=== PATIENT | female | born 1950 | race Caucasian/White ===

== ENCOUNTER 2017-11-27 15:11 | Observation (INO) ==
--- NOTE | 2017-11-27 16:18 | Emergency Department Note ---
Disposition Clinical Impression: Neck swelling DVT (deep venous thrombosis) Qualifiers: DVT location: non-extremity vein Chronicity: acute Qualified Code(s): I82.90 - Acute embolism and thrombosis of unspecified vein Disposition: Admitted As Inpatient Condition: Good Referrals: Fidel Guillen MD [Primary Care Provider] - Forms: ED Satisfaction Letter, Work/School Release Time of Disposition: 20:30 General Adult HPI - General Chief complaint: ED General Medical Stated complaint: Right IJ clot Time Seen by Provider: 11/27/17 15:59 Nursing Notes Reviewed: Yes Vital Signs Reviewed: Yes - History of Present Illness HPI Narrative: 2 day history of right sided neck pain, fevers and chills. Pt has breast cancer and is on chemo currently. She had a port placed Today the swelling got worse. So they went to the cancer doctor today and the Pt was found to have a blood clot in her right IJ. She has been off of her plavix for 2 weeks because she had a port placed at that time. She resumed this yesterday. Pain Scale: 4 - Related Data Home Medications Medication Instructions Recorded Confirmed Clopidogrel [Plavix] 75 mg PO DAILY 10/30/17 11/19/17 Gabapentin [Neurontin] 300 mg PO BID 10/30/17 11/19/17 GlipiZIDE XL (24 HR) [Glucotrol XL] 10 mg PO BID 10/30/17 11/19/17 Levothyroxine [Synthroid] 100 mcg PO DAILY 10/30/17 11/19/17 Metformin HCl 1,000 mg PO BID 10/30/17 11/19/17 Venlafaxine XR (24 HR) [Effexor XR] 150 mg PO BID 10/30/17 11/19/17 Aspirin [Lo-Dose Aspirin EC] 81 mg PO DAILY 11/01/17 11/19/17 Lisinopril [Zestril] 10 mg PO DAILY 11/27/17 11/27/17 Previous Rx's Medication Instructions Recorded Dexamethasone [Decadron] 4 mg PO BID PRN #36 tab 11/09/17 Lidocaine/Prilocaine [Emla] 1 appl TP AD PRN #30 gm 11/09/17 Ondansetron [Zofran] 8 mg PO Q8HR PRN #60 tablet 11/09/17 Prochlorperazine Maleate 10 mg PO Q6HR #90 tablet 11/09/17 [Compazine] Loratadine [Allergy Relief] 10 mg PO AD PRN #10 tablet 11/14/17 Magic Mouthwash 5 ml PO Q4H PRN #240 ml 11/14/17 Amoxicillin/Clavulanate [Augmentin] 500 mg PO BIDWM #10 tablet 11/26/17 Docusate Sodium [Colace] 100 mg PO BID #60 capsule 11/26/17 Polyethylene Glycol 3350 [MiraLAX] 17 gm PO DAILY PRN #1 powd.pack 11/26/17 Allergies Allergy/AdvReac Type Severity Reaction Status Date / Time fosaprepitant Allergy Severe Difficulty Verified 11/26/17 09:03 [From Emend (fosaprepitant)] Breathing moxifloxacin [From Avelox] Allergy Swelling Verified 11/26/17 09:03 of Lip/Tongue/Throat All systems ED: reviewed and negative except as stated. Constitutional: Reports: fever, chills (Over 2 days) ENT ED: Denies: congestion Cardiovascular: Reports: chest pain (One episode last night for around 30 minutes. Describes it as a tight sensation.). Denies: palpitations, syncope Respiratory: Denies: cough, dyspnea Gastrointestinal: Denies: abdominal pain, nausea, vomiting, diarrhea Genitourinary: Reports: frequency (Increased). Denies: urgency, dysuria Musculoskeletal: Reports: neck pain (Right-sided neck pain. Also right-sided neck swelling.). Denies: back pain Past Medical History - Past Medical History Attestation: Yes The following information was validated with the patient. Source: patient Medical history: Reports: cancer Surgical history: Reports: sinus surgery Psychiatric history: Reports: no psych history - Social History Smoking Status: Current every day smoker Smokeless Tobacco Status: No Alcohol use: Reports: none Drug use: Reports: none Physical Exam - General Limitations: no limitations General appearance: alert, in no apparent distress - Head Head exam: atraumatic, normocephalic, normal inspection - Eye Eye exam: Present: normal appearance, PERRL, EOMI - ENT ENT exam: normal exam, normal oropharynx, mucous membranes moist - Neck Neck exam: Present: full ROM, trachea midline, other (Mild swelling to the right side of her neck.) - Chest Chest inspection: Present: normal inspection, symmetric chest wall rise - Respiratory Respiratory exam: Present: normal lung sounds bilaterally. Absent: respiratory distress, accessory muscle use - Cardiovascular Cardiovascular exam: Present: regular rate, normal rhythm, normal heart sounds - Abdominal Exam Abdominal exam: Present: soft, Non-Tender. Absent: tenderness, distention, guarding, rebound, rigidity, organomegaly - Extremities Exam Extremities exam: Present: normal inspection, full ROM, normal capillary refill. Absent: tenderness, pedal edema - Back Exam Back exam: Present: normal inspection, full ROM. Absent: tenderness - Neurological Exam Neurological exam: Present: alert, oriented X3 - Psychiatric Psychiatric exam: Present: normal affect, normal mood - Skin Skin exam: Present: warm, dry, intact, normal color Course Course Narrative: Female patient presents emergency department complaining of right sided neck swelling. She states is been going on for 2 days. Intermittent fevers and chills. States last night she thought she felt something burst in her neck. She states she had a funny taste in her mouth at that time. She did present her physician today who sent her for a ultrasound of her right neck. She was found to have a clot in her right IJ so she was brought to the emergency department. She is on Plavix chronically for a stroke that was several years ago. She stopped taking her Plavix 2 weeks ago to have a port placed. She did not restart this until yesterday. She is also complaining of one episode of chest pain that happened last night. Lasted for about 30 minutes. Did not have associated shortness of breath. No swelling to her extremities. Patient is well appearing. In no distress. Vitals are stable. We will get a CTA of patient's chest and head and neck. We will contact vascular. They are requesting Dr. hood as he is her breast cancer doctor and has had vascular surgery is with parts of her family. However this time Dr. Zavala is not division merchandise manager. We will contact the on-call vascular surgeon to discuss the case and admit patient to the hospital. - Reevaluation(s) Reevaluation #1: No signs of bleeding in patients head CT. There does have a redemonstration of the right IJ DVT. We have started the patient on heparin at this time. We will admit patient to the hospital. Time: 20:29 - Consultations Consultation #1: I spoke with Dr Blanco through his nurse who requested that we contact surgery. Time: 17:20 Consultation #2: I spoke with Dr Black who suggested that the Pt would need further imaging and likely anticoagulation. Also admitted to the hospital. As well as IR evaluation since they placed the port. Time: 17:30 Consultation #3: Dr Sandy accepted Pt in stable condition. Time: 21:02 Vital Signs Temperature 98.7 F 11/27/17 15:48 Pulse Rate 96 11/27/17 15:48 Respiratory Rate 18 11/27/17 15:48 Blood Pressure 109/65 11/27/17 15:48 O2 Sat by Pulse Oximetry 97 11/27/17 15:48 Temperature 98.7 F 11/27/17 17:53 Pulse Rate 96 11/27/17 17:53 Respiratory Rate 18 11/27/17 17:53 Blood Pressure 119/63 11/27/17 17:53 O2 Sat by Pulse Oximetry 96 11/27/17 18:05 Oxygen Delivery Oxygen Delivery Room Air Medical Decision Making - Medical Records Medical records reviewed: Yes I reviewed the patient's medical records. - Lab Data Lab results reviewed: Yes I reviewed the patient's lab results. Result diagrams: 11/27/17 16:28 11/27/17 16:28 Lab Results 11/27/17 11/27/17 11/27/17 Range/Units 16:28 16:28 16:28 WBC 2.9 L D (4.3-11.1) K/mcL RBC 3.91 (3.82-4.97) M/mcL Hgb 11.7 (11.5-15.4) g/dL Hct 35.3 (35.3-44.9) % MCV 90.3 (83.0-100.0) fL MCH 29.9 (28.0-33.3) pg MCHC 33.1 (31.6-35.5) g/dL RDW 13.0 (11.5-14.5) % Plt Count 103 L (140-400) K/mcL MPV 10.2 (9.4-12.4) fL Immature Gran % 4.9 H (0-4) % Seg Neutrophils % 34.0 % Lymphocytes % 43.9 % Monocytes % 13.3 % Eosinophils % 2.8 % Basophils % 1.1 % Neutrophils # 1.0 L (1.6-8.9) K/mcL Lymphocytes # 1.3 (0.6-4.6) K/mcL Monocytes # 0.4 (0.0-1.3) K/mcL Eosinophils # 0.1 (0.0-0.6) K/mcL Basophils # 0.0 (0.0-0.2) K/mcL Reactive Lymphocytes Present A (Not Present) Platelet Estimate Decreased L (Normal) PT 11.9 (9.4-12.1) Seconds INR 1.1 Sodium 137 (136-145) mEq/L Potassium 4.1 (3.5-5.1) mEq/L Chloride 105 (98-107) mEq/L Carbon Dioxide 29 (23-29) mEq/L BUN 16 (8-23) mg/dL Creatinine 0.65 (0.60-1.20) mg/dL Est GFR ( Amer) > 60 (> 60) Est GFR (Non-Af Amer) > 60 (> 60) BUN/Creatinine Ratio 25 (6-26) Glucose 118 H (70-105) mg/dL Calculated Osmolality 286 (280-300) Calcium 8.7 (8.6-10.3) mg/dL Troponin I < 0.03 (< 0.04) ng/mL - Radiology Data Radiology results reviewed: Yes I reviewed the patient's radiology results. Angiography CT 11/27/17 16:19 IMPRESSION: 1. Moderate stenosis proximal left common carotid artery. 2. Moderate stenosis proximal right vertebral artery. 3. Patent intracranial arteries. 4. 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 5. No acute intracranial abnormality. 6. Multiple chronic brain infarcts. D/ / 11/27/2017 20:21:45 Michael Burch MD / angelica Interpreting Provider: Michael Burch MD Chest CTA 11/27/17 16:19 IMPRESSION: No evidence of pulmonary embolism or aortic dissection. As indicated on the history, there is a filling defect within the downstream right internal jugular vein adjacent to the mika catheter, extending into the superior vena cava, compatible with thrombus. There is fat stranding seen within the lower neck along the downstream internal jugular vein, which may be postprocedural from placement of the mika catheter, or could be secondary to venous congestion from the thrombus. Likewise, there is fat stranding which is increased in the right axillary region, again which may be secondary to venous congestion. Right axillary lymphadenopathy appears basically unchanged when compared to the previous exam. Re- demonstration of atherosclerotic plaque at the origin of the left common carotid artery. After resolution of acute symptoms, consider further evaluation with CT angiography. D/ / Basilio Ann MD / Basilio Ann MD Interpreting Provider: Basilio Ann MD Neck CTA 11/27/17 16:19 IMPRESSION: 1. Moderate stenosis proximal left common carotid artery. 2. Moderate stenosis proximal right vertebral artery. 3. Patent intracranial arteries. 4. 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 5. No acute intracranial abnormality. 6. Multiple chronic brain infarcts. D/ / 11/27/2017 20:21:45 Michael Burch MD / angelica Interpreting Provider: Michael Burch MD - EKG Data EKG #1 EKG attestation: Yes I reviewed and interpreted this EKG. EKG results narrative: Normal sinus rhythm. 96. TX interval is 136. QRS duration is 85. QT is 329. QTC is 383. No old EKG to compare to. No signs of acute ischemia.
[2017-11-27] MEDS ORDERED: Isovue-370 500 ML INFUS..BTL IV ONE ×2 (16:19→19:59)
[2017-11-27] MEDS ORDERED: 0.9 % Sodium Chloride 500 ML IVC ONE (16:20)
[2017-11-27 16:51] LABS: Basophils % 1.1 %; Eosinophils # 0.1 K/mcL (0.0-0.6); Eosinophils % 2.8 %; Hematocrit 35.3 % (35.3-44.9); Hemoglobin 11.7 g/dL (11.5-15.4); Immature Granulocytes % 4.9 % (0-4); Lymphocytes # 1.3 K/mcL (0.6-4.6); Lymphocytes % 43.9 %; Mean Corpuscular HGB Conc 33.1 g/dL (31.6-35.5); Mean Corpuscular Hemoglobin 29.9 pg (28.0-33.3); Mean Corpuscular Volume 90.3 fL (83.0-100.0); Mean Platelet Volume 10.2 fL (9.4-12.4); Monocytes # 0.4 K/mcL (0.0-1.3); Monocytes % 13.3 %; Platelet Count 103 K/mcL (140-400); Red Blood Count 3.91 M/mcL (3.82-4.97)
[2017-11-27 17:08] LABS: INR 1.1; Prothrombin Time 11.9 Seconds (9.4-12.1)
[2017-11-27 17:12] LABS: BUN/Creatinine Ratio 25 (6-26); Blood Urea Nitrogen 16 mg/dL (8-23); Calcium 8.7 mg/dL (8.6-10.3); Carbon Dioxide 29 mEq/L (23-29); Chloride 105 mEq/L (98-107); Glucose 118 mg/dL (70-105); Osmolality,Calculated 286 (280-300); Potassium 4.1 mEq/L (3.5-5.1); Sodium 137 mEq/L (136-145); Troponin I < 0.03 ng/mL (< 0.04); eGFR For Non-African Americans > 60 (> 60)
[2017-11-27 17:20] LABS: Reactive Lymphocytes Present (Not Present)
[2017-11-27 17:21] LABS: Platelet Estimate Decreased (Normal)
--- NOTE | 2017-11-27 17:31 | Emergency Department Note ---
Disposition Clinical Impression: DVT (deep venous thrombosis) Qualifiers: DVT location: non-extremity vein Chronicity: acute Qualified Code(s): I82.90 - Acute embolism and thrombosis of unspecified vein Disposition: Admitted As Inpatient Forms: ED Satisfaction Letter, Work/School Release General Adult HPI - General Chief complaint: ED General Medical Stated complaint: Right IJ clot Time Seen by Provider: 11/27/17 15:59 Limitations: no limitations - History of Present Illness Pain Scale: 4 - Related Data Home Medications Medication Instructions Recorded Confirmed Clopidogrel [Plavix] 75 mg PO DAILY 10/30/17 11/19/17 Gabapentin [Neurontin] 300 mg PO BID 10/30/17 11/19/17 GlipiZIDE XL (24 HR) [Glucotrol XL] 10 mg PO BID 10/30/17 11/19/17 Levothyroxine [Synthroid] 100 mcg PO DAILY 10/30/17 11/19/17 Metformin HCl 1,000 mg PO BID 10/30/17 11/19/17 Venlafaxine XR (24 HR) [Effexor XR] 150 mg PO BID 10/30/17 11/19/17 HYDROcodone/Acet 5/325 mg [[place] 1 tab PO Q6H PRN 10/31/17 11/19/17 5-325 mg] Aspirin [Lo-Dose Aspirin EC] 81 mg PO DAILY 11/01/17 11/19/17 Docusate Sodium [Stool Softener] 100 mg PO DAILY 11/26/17 11/26/17 Polyethylene Glycol 3350 [MiraLAX] 17 gm PO DAILY 11/26/17 11/26/17 Previous Rx's Medication Instructions Recorded Dexamethasone [Decadron] 4 mg PO BID PRN #36 tab 11/09/17 Lidocaine/Prilocaine [Emla] 1 appl TP AD PRN #30 gm 11/09/17 Ondansetron [Zofran] 8 mg PO Q8HR PRN #60 tablet 11/09/17 Prochlorperazine Maleate 10 mg PO Q6HR #90 tablet 11/09/17 [Compazine] Loratadine [Allergy Relief] 10 mg PO AD PRN #10 tablet 11/14/17 Magic Mouthwash 5 ml PO Q4H PRN #240 ml 11/14/17 Amoxicillin/Clavulanate [Augmentin] 500 mg PO BIDWM #10 tablet 11/26/17 Docusate Sodium [Colace] 100 mg PO BID #60 capsule 11/26/17 Polyethylene Glycol 3350 [MiraLAX] 17 gm PO DAILY PRN #1 powd.pack 11/26/17 Allergies Allergy/AdvReac Type Severity Reaction Status Date / Time fosaprepitant Allergy Severe Difficulty Verified 11/26/17 09:03 [From Emend (fosaprepitant)] Breathing moxifloxacin [From Avelox] Allergy Swelling Verified 11/26/17 09:03 of Lip/Tongue/Throat Constitutional: Reports: fever, chills (Over 2 days) ENT ED: Denies: congestion Cardiovascular: Reports: chest pain (One episode last night for around 30 minutes. Describes it as a tight sensation.). Denies: palpitations, syncope Respiratory: Denies: cough, dyspnea Gastrointestinal: Denies: abdominal pain, nausea, vomiting, diarrhea Genitourinary: Reports: frequency (Increased). Denies: urgency, dysuria Musculoskeletal: Reports: neck pain (Right-sided neck pain. Also right-sided neck swelling.). Denies: back pain Past Medical History - Past Medical History Medical history: Reports: cancer Surgical history: Reports: sinus surgery Psychiatric history: Reports: no psych history - Social History Smoking Status: Current every day smoker Smokeless Tobacco Status: No Alcohol use: Reports: none Drug use: Reports: none Physical Exam - General Limitations: no limitations General appearance: alert, in no apparent distress Course Vital Signs Temperature 98.7 F 11/27/17 15:48 Pulse Rate 96 11/27/17 15:48 Respiratory Rate 18 11/27/17 15:48 Blood Pressure 109/65 11/27/17 15:48 O2 Sat by Pulse Oximetry 97 11/27/17 15:48 Temperature 98.7 F 11/27/17 15:48 Pulse Rate 96 11/27/17 15:48 Respiratory Rate 18 11/27/17 15:48 Blood Pressure 109/65 11/27/17 15:48 O2 Sat by Pulse Oximetry 97 11/27/17 15:48 Oxygen Delivery Oxygen Delivery Room Air Medical Decision Making - Lab Data Result diagrams: 11/27/17 16:28 11/27/17 16:28 Lab Results 11/27/17 11/27/17 11/27/17 Range/Units 16:28 16:28 16:28 WBC 2.9 L D (4.3-11.1) K/mcL RBC 3.91 (3.82-4.97) M/mcL Hgb 11.7 (11.5-15.4) g/dL Hct 35.3 (35.3-44.9) % MCV 90.3 (83.0-100.0) fL MCH 29.9 (28.0-33.3) pg MCHC 33.1 (31.6-35.5) g/dL RDW 13.0 (11.5-14.5) % Plt Count 103 L (140-400) K/mcL MPV 10.2 (9.4-12.4) fL Immature Gran % 4.9 H (0-4) % Seg Neutrophils % 34.0 % Lymphocytes % 43.9 % Monocytes % 13.3 % Eosinophils % 2.8 % Basophils % 1.1 % Neutrophils # 1.0 L (1.6-8.9) K/mcL Lymphocytes # 1.3 (0.6-4.6) K/mcL Monocytes # 0.4 (0.0-1.3) K/mcL Eosinophils # 0.1 (0.0-0.6) K/mcL Basophils # 0.0 (0.0-0.2) K/mcL Reactive Lymphocytes Present A (Not Present) Platelet Estimate Decreased L (Normal) PT 11.9 (9.4-12.1) Seconds INR 1.1 Sodium 137 (136-145) mEq/L Potassium 4.1 (3.5-5.1) mEq/L Chloride 105 (98-107) mEq/L Carbon Dioxide 29 (23-29) mEq/L BUN 16 (8-23) mg/dL Creatinine 0.65 (0.60-1.20) mg/dL Est GFR ( Amer) > 60 (> 60) Est GFR (Non-Af Amer) > 60 (> 60) BUN/Creatinine Ratio 25 (6-26) Glucose 118 H (70-105) mg/dL Calculated Osmolality 286 (280-300) Calcium 8.7 (8.6-10.3) mg/dL Troponin I < 0.03 (< 0.04) ng/mL Attestation Statement - Attestation Attestation: I examined this patient and my medical decision-making was reviewed with the Resident Physician. I agree with the documented findings, disposition and treatment plan as described except to the extent set forth below. 67 year old female presents to the ED with complaints of right IJ blood clot recently found on US. Ashutosh has been experincing increased neck pain and swelling. Ashutosh curently has active breast cancer and was on plavix but stopped for the port placement, and after the port placement only just started the plavix again last night. Ashutosh states that she follows with Dr. Zavala and the port was placed 2 weeks ago. We have spoke with Dr. Blanco who is vascualr surgeon and they do not think this is a vascular concern, and to obtain consult from surgery. WE will obtain CTA of the head, neck, and chest to rule out other blood clots
[2017-11-27] MEDS ORDERED: *HR* Heparin 5,000 UNIT/ML VIAL IVP PRN ×2 (20:22)
[2017-11-27] MEDS ORDERED: *HR* Heparin 5,000 UNIT/ML VIAL IVP ONE (20:22)
[2017-11-27 21:10] LABS: Heparin anti-factor XA UFH 0.02 IU/mL (0.30-0.70)
[2017-11-27 21:11] LABS: Prothrombin Time 11.5 Seconds (9.4-12.1)
[2017-11-27 21:33] LABS: Hematocrit 33.9 % (35.3-44.9); Hemoglobin 11.1 g/dL (11.5-15.4); Mean Corpuscular HGB Conc 32.7 g/dL (31.6-35.5); Mean Corpuscular Hemoglobin 29.5 pg (28.0-33.3); Mean Corpuscular Volume 90.2 fL (83.0-100.0); Mean Platelet Volume 10.4 fL (9.4-12.4); Platelet Count 100 K/mcL (140-400); Red Blood Count 3.76 M/mcL (3.82-4.97); Red Cell Distribution Width 13.1 % (11.5-14.5)
[2017-11-27] MEDS: Heparin 25,000 UNIT/500 ML D5W 25,000 UNIT/500 ML BAG IVC SCH (21:39)
[2017-11-27] MEDS ORDERED: *HR* Dextrose 50 % in Water (Syg) 50 ML SYRINGE IVP PRN (22:07)
[2017-11-27] MEDS ORDERED: Naloxone 0.4 MG/ML INJ IVP PRN (22:07)
[2017-11-27] MEDS ORDERED: D5% in Water 1,000 ML IVC PRN (22:07)
[2017-11-27] MEDS ORDERED: Dextrose Gel 15 GM/37.5 ML TUBE PO PRN ×2 (22:07)
[2017-11-27] MEDS ORDERED: traMADol 50 MG TABLET PO PRN (22:07)
[2017-11-27] MEDS ORDERED: Acetaminophen 325 MG TABLET PO PRN (22:07)
[2017-11-27] MEDS ORDERED: Magic Mouthwash 10 ML UD Cup PO PRN (22:16)
[2017-11-27] MEDS ORDERED: Ondansetron ODT 4 MG TAB.RAPDIS PO PRN (22:16)
--- NOTE | 2017-11-27 22:35 | Internal Med History&Physical ---
Date of Encounter: 11/27/17 Time of Encounter: 21:50 Internal Medicine - H&P: HPI Chief complaint: neck pain/swelling Admitted From: Emergency Dept Plans for Post Hospital Care: Home History of present illness: Ms. Kenny is a 67 year old female who presents with complaints of right-sided neck pain, swelling, and sore throat. Symptoms presented several days ago and she was placed on Augmentin by her PCP for presumptive pharyngitis. However, the pain, swelling, and then subsequent chest pain persisted and developed leading the patient to come to the ER today. Workup in the ER revealed patient to have a thrombus in her right IJ and right brachiocephalic vein concerning for possible development of SVC syndrome. She was subsequently admitted to the hospitalist service. I personally called and spoke with interventional radiology and there is no involvement of SVC at this time, but anticoagulation is warranted nonetheless. I saw and evaluated patient in the ER and spoke with patient and her daughter. They confirmed the above history. The swelling in her neck has improved over the last several hours since she has been lying flat. She also has had some chest tightness and chest pain earlier today but presently is chest pain-free. She denies any shortness of breath. She recently had a Medi-port placed about 10 days ago by interventional radiology. She subsequently started chemotherapy for a recent diagnosis of breast cancer. She remains on aspirin and Plavix for stroke prophylaxis as she has had multiple strokes in the past. Of note, patient has never had a DVT before and there is no family history of blood clots. Past Med Surg Social Fam HX - Past Medical History Attestation: Yes The following information was validated with the patient. Source: patient, old records reviewed, obtained from family Medical history: cancer (breast), diabetes, hypertension Psychiatric history: no psych history - Past Surgical History Surgical History: sinus surgery, other ( surgery) - Social History Smoking Status: Current every day smoker Smokeless Tobacco Status: No Alcohol use: none Drug use: none Current living situation: Home - Independent Activity Level: Independent ambulation Recent Out of Country Travel Within the Last 8 Weeks: No - Family History Mother Hx Family Cancer: No Father Hx Family Cancer: No - Additional Family History Additional family history: NO FH DVT/PE Internal Medicine - H&P: Meds Clopidogrel [Plavix] 75 mg PO DAILY 10/30/17 [History] Gabapentin [Neurontin] 300 mg PO BID 10/30/17 [History] GlipiZIDE XL (24 HR) [Glucotrol XL] 10 mg PO BID 10/30/17 [History] Levothyroxine [Synthroid] 100 mcg PO DAILY 10/30/17 [History] Metformin HCl 1,000 mg PO BID 10/30/17 [History] Venlafaxine XR (24 HR) [Effexor XR] 150 mg PO BID 10/30/17 [History] Aspirin [Lo-Dose Aspirin EC] 81 mg PO DAILY 11/01/17 [History] Dexamethasone [Decadron] 4 mg PO BID PRN #36 tab 11/09/17 [Rx] Lidocaine/Prilocaine [Emla] 1 appl TP AD PRN #30 gm 11/09/17 [Rx] Ondansetron [Zofran] 8 mg PO Q8HR PRN #60 tablet 11/09/17 [Rx] Prochlorperazine Maleate [Compazine] 10 mg PO Q6HR #90 tablet 11/09/17 [Rx] Loratadine [Allergy Relief] 10 mg PO AD PRN #10 tablet 11/14/17 [Rx] Magic Mouthwash 5 ml PO Q4H PRN #240 ml 11/14/17 [Rx] Amoxicillin/Clavulanate [Augmentin] 500 mg PO BIDWM #10 tablet 11/26/17 [Rx] Docusate Sodium [Colace] 100 mg PO BID #60 capsule 11/26/17 [Rx] Polyethylene Glycol 3350 [MiraLAX] 17 gm PO DAILY PRN #1 powd.pack 11/26/17 [Rx] Lisinopril [Zestril] 10 mg PO DAILY 11/27/17 [History] 3 Allergy/AdvReac Type Severity Reaction Status Date / Time fosaprepitant Allergy Severe Difficulty Verified 11/26/17 09:03 [From Emend (fosaprepitant)] Breathing moxifloxacin [From Avelox] Allergy Swelling Verified 11/26/17 09:03 of Lip/Tongue/Throat - Constitutional Constitutional: no chills, no fever(s), no night sweats - EENT Eyes: no blurry vision, no change in vision Ears: no ear pain, no tinnitus Nose, mouth and throat: neck pain, no nasal congestion, no sinus pressure, no sore throat, no throat swelling, no tongue swelling Additional comments: + right sided neck swelling - Cardiovascular Cardiovascular ROS IM: chest pain, no dyspnea, no dyspnea on exertion, no lightheadedness, no palpitations, no paroxysmal nocturnal dyspnea, no syncope - Respiratory Respiratory: no cough, no dyspnea, no hemoptysis, no wheezing, no chest congestion, no excessive phlegm production, no change in phlegm color - Gastrointestinal Gastrointestinal: no abdominal pain, no diarrhea, no hematemesis, no hematochezia, no melena, no nausea, no vomiting - Genitourinary Genitourinary: no dysuria, no flank pain, no hematuria - Musculoskeletal Musculoskeletal ROS IM: no arthralgias, no back pain - Integumentary Integumentary IM: no rash, no jaundice - Neurological Neurological ROS: no disequilibrium, no dizziness, no focal weakness, no frequent falls, no headache(s) - Psychiatric Psychiatric: no anxiety, no depression - Endocrine Endocrine IM: no polydipsia, no polyuria - Hematologic/Lymphatic Hematologic/Lymphatic: easy bruising, lymphadenopathy - Allergic/Immunologic Allergic/Immunologic: no wheezing, no GI upset with certain foods - Constitutional Vitals: Temp Pulse Resp BP Pulse Ox 98.7 F 96 18 119/63 96 11/27/17 17:53 11/27/17 17:53 11/27/17 17:53 11/27/17 17:53 11/27/17 18:05 General appearance: Present: cooperative, A&O X 3, pleasant, no acute distress, answers questions appropriately - Head Head exam: Present: atraumatic, normal inspection - Eye Eye exam: Present: EOMI, normal appearance, PERRL. Absent: scleral icterus Pupils: Present: normal accommodation - ENT ENT exam: Present: mucous membranes dry, normal oropharynx - Neck Neck exam general surgery: Present: full ROM, tenderness (right neck along IJ), supple, trachea midline. Absent: normal inspection (right sided neck swelling ( mild) compared to left neck), nuchal rigidity, thyromegaly - Respiratory Respiratory exam: Present: CTAB. Absent: chest wall tenderness, rales, respiratory distress, rhonchi, wheezes - Cardiovascular Cardiovascular exam: Present: RRR, +S1, +S2. Absent: diastolic murmur, systolic murmur - GI/Abdominal GI/Abdominal exam: Present: normal bowel sounds, soft. Absent: guarding, hepatomegaly, mass, rebound, splenomegaly, tenderness - Extremities Exam Extremities exam: Present: full ROM, normal capillary refill, warm, radial pulses palpable and symmetrical. Absent: calf tenderness, joint swelling, pedal edema, tenderness - Back Exam Back exam: Absent: CVA tenderness (L), CVA tenderness (R) - Neurological Exam Neurological exam: Present: alert, CN II-XII intact, oriented X3, no focal deficits, strengths equal and symetr throughout - Psychiatric Psychiatric exam: Present: normal affect, normal mood - Skin Skin exam: Present: dry, intact, warm. Absent: rash Internal Med - H&P Results - Labs CBC & Chem 7: 11/27/17 20:36 11/27/17 16:28 - EKG Data -: EKG Interpreted by Myself EKG shows normal: sinus rhythm - EKG Data Prior EKG available for review: no EKG comments: 11/27/17 22:42 NSR; no acute changes - Diagnostic Studies CT scan - chest Additional comments: Reviewed report and discussed results with IR (Dr. Granger) - VTE Reasons for not Prescribing Prophylaxis: Not indicated-Anticoagulated or INR therapeutic - Assessment and plan (1) Internal jugular (IJ) vein thromboembolism, acute Current Visit: Yes Status: Acute Assessment and plan: 1. Heparin drip initiated in ER. Will continue for now. 2. Discussed with IR -- Dr. Granger. 3. I called and discussed with oncology as well (Dr. Lilly) who recommends transitioning to Xarelto tomorrow and discharging home on Xarelto if she remains stable and then to follow up with Oncology soon after discharge. If unable to do so, he will see her in consult tomorrow after office hours. Qualifiers: Laterality: right Qualified Code(s): I82.C11 - Acute embolism and thrombosis of right internal jugular vein (2) Chest pain Current Visit: Yes Status: Acute Assessment and plan: 1. Will trend troponins and EKG's. 2. Will order ECHO. 3. Concern for possible PE given symptoms and findings of IJ thrombus. CTA negative for PE. Furthermore, anticoagulaiton is being initiated. Qualifiers: Chest pain type: precordial pain Qualified Code(s): R07.2 - Precordial pain (3) Breast cancer Current Visit: Yes Status: Chronic Assessment and plan: 1. Patient already established with Oncology. 2. Outpatient follow up unless she develops a need for inpatient co-management. Qualifiers: Breast location: central portion of breast Estrogen receptor status: unspecified Patient sex: female Laterality: right Qualified Code(s): C50.111 - Malignant neoplasm of central portion of right female breast (4) DVT prophylaxis Current Visit: Yes Status: Acute Assessment and plan: 1. Heparin drip started as noted above.
[2017-11-27 23:44] LABS: Estimated Average Glucose 166 mg/dl; Hemoglobin A1C 7.4 %
[2017-11-28] MEDS: 0.9 % Sodium Chloride 1,000 ML IVC SCH ×2 (01:33→12:38)
[2017-11-28 04:44] LABS: Eosinophils % 1.6 %; Hemoglobin 11.2 g/dL (11.5-15.4)
[2017-11-28 04:46] LABS: Basophils # 0.1 K/mcL (0.0-0.2); Basophils % 1.3 %; Eosinophils # 0.1 K/mcL (0.0-0.6); Hematocrit 33.3 % (35.3-44.9); Immature Granulocytes % 10.9 % (0-4); Immature Platelets 3.2 % (1.1-6.1); Lymphocytes # 1.5 K/mcL (0.6-4.6); Lymphocytes % 32.3 %; Mean Corpuscular HGB Conc 33.6 g/dL (31.6-35.5); Mean Corpuscular Hemoglobin 30.5 pg (28.0-33.3); Mean Corpuscular Volume 90.7 fL (83.0-100.0); Mean Platelet Volume 10.3 fL (9.4-12.4); Monocytes # 0.5 K/mcL (0.0-1.3); Monocytes % 11.6 %; Neutrophils # 1.9 K/mcL (1.6-8.9); Platelet Count 106 K/mcL (140-400); Red Blood Count 3.67 M/mcL (3.82-4.97); Segmented Neutrophils % 42.3 %
[2017-11-28 04:56] LABS: Alanine Aminotransferase 25 Units/L (7-52); Albumin 3.3 g/dL (3.5-5.7); Albumin/Globulin Ratio 1.4 (1.1-2.2); Alkaline Phosphatase 103 Units/L (34-104); Aspartate Amino Transferase 13 Units/L (13-39); BUN/Creatinine Ratio 21 (6-26); Bilirubin,Total 0.3 mg/dL (0.3-1.0); Blood Urea Nitrogen 14 mg/dL (8-23); Calcium 8.5 mg/dL (8.6-10.3); Carbon Dioxide 25 mEq/L (23-29); Chloride 109 mEq/L (98-107); Chol/HDL Ratio 3.9 (0-4.9); Cholesterol 122 mg/dL (< 200); Globulin 2.3 g/dL (2.4-3.5); Glucose 135 mg/dL (70-105); HDL Cholesterol 31 mg/dL (40-59); LDL Cholesterol,Calculated 62 mg/dL (0-99); Osmolality,Calculated 287 (280-300); Potassium 3.9 mEq/L (3.5-5.1); Sodium 137 mEq/L (136-145); Total Protein 5.6 g/dL (6.4-8.9); Triglycerides 146 mg/dL (< 150); eGFR For Non-African Americans > 60 (> 60)
[2017-11-28 05:21] LABS: Platelet Estimate Decreased (Normal); Reactive Lymphocytes Present (Not Present); Toxic Granulation Present (Not Present)
[2017-11-28] MEDS ORDERED: Amoxicillin/Clavulanate 500 MG TABLET PO SCH (08:00)
[2017-11-28] MEDS: Insulin LISPRO 300 UNITS/3 ML VIAL SQ SCH ×5 (09:10→21:24)
[2017-11-28] MEDS: Gabapentin 300 MG CAPSULE PO SCH ×2 (09:18→21:24)
[2017-11-28] MEDS: Venlafaxine XR (24 HR) 150 MG CAP.ER.24H PO SCH ×2 (09:18→21:24)
[2017-11-28] MEDS: Aspirin Enteric Coated 81 MG Tablet PO SCH (09:19)
--- NOTE | 2017-11-28 11:45 | Internal Med Progress Note ---
Date of Encounter: 11/28/17 Time of Encounter: 11:42 - Assessment and plan (1) Internal jugular (IJ) vein thromboembolism, acute Current Visit: Yes Status: Acute Assessment and plan: Patient recently had a port placed on the side for her recent diagnosis of breast cancer. Will continue heparin drip and check pricing for xarelto period. If several toes not improved would likely start low molecular weight heparin twice a day. Due to the interval increase in swelling since admission per the patient and family will likely observe the rest of the day and overnight. It is no concern for any airway compromise. Oncology consultation pending Qualifiers: Laterality: right Qualified Code(s): I82.C11 - Acute embolism and thrombosis of right internal jugular vein (2) Breast cancer Current Visit: Yes Status: Chronic Assessment and plan: 1. Patient already established with Oncology. 2. Outpatient follow up unless she develops a need for inpatient co-management. Qualifiers: Breast location: central portion of breast Estrogen receptor status: unspecified Patient sex: female Laterality: right Qualified Code(s): C50.111 - Malignant neoplasm of central portion of right female breast (3) Chest pain Current Visit: Yes Status: Acute Assessment and plan: Chest pain resolved. Serial troponins are negative. Echocardiogram ordered. Qualifiers: Chest pain type: precordial pain Qualified Code(s): R07.2 - Precordial pain (4) DVT prophylaxis Current Visit: Yes Status: Acute Assessment and plan: 1. Heparin drip started as noted above. - Time Spent With Patient Total time spent is greater than 50% in coordination of care (as documented) at patient's floor/unit and/or counseling patient: - Subjective Interval history: Patient seen and evaluated at bedside. Since admission the patient states that she has had some interval increase in swelling of her neck and face. This corroborated by the patient's daughter. The patient's currently lying flat in the bed and comfortable. The patient is not having any trouble swallowing or breathing. Patient denies any chest pain shortness of breath, nausea, vomiting , diarrhea, headache - Constitutional Vitals: Temp Pulse Resp BP Pulse Ox 98.2 F 87 15 124/71 96 11/28/17 10:57 11/28/17 10:57 11/28/17 10:57 11/28/17 10:57 11/28/17 10:57 General appearance: Present: cooperative, A&O X 3, pleasant, no acute distress, answers questions appropriately Exam: Constitutional: No acute distress, Alert Psych: AAO x 3 HEENT: NCAT, EOMI, airway is patent there is no pharyngeal swelling, there is absolutely no evidence of stridor Neck: There is notable fullness throughout the neck more so on the right side extending into the right jaw. This does not appear to be very severe but is quite a change from normal. The patient and daughter Cardio: regular rate and rhythm, +s1s2, no murmurs/rubs/ronchi, no lower extremity edema, no JVD Resp: clear to ascultation bilaterally, no wheezes/rales/ronchi Abd: soft, non tender/non distended, positive bowel sounds, no gaurding/reboud/ ridgitity Extremities: no clubbing/cyanosis/edema appreciated Neuro: no focal deficits appreciated Internal Medicine: Result - Labs CBC & Chem 7: 11/28/17 04:23 11/28/17 04:23 Labs: Short CBC 11/28/17 Range/Units 04:23 WBC 4.5 (4.3-11.1) K/mcL Hgb 11.2 L (11.5-15.4) g/dL Hct 33.3 L (35.3-44.9) % Plt Count 106 L (140-400) K/mcL Neutrophils # 1.9 (1.6-8.9) K/mcL BMP 11/28/17 04:23 Sodium 137 Potassium 3.9 Chloride 109 H Carbon Dioxide 25 BUN 14 Creatinine 0.66 Glucose 135 H Calcium 8.5 L Cardiac Enzymes 11/27/17 11/28/17 Range/Units 23:24 04:23 Troponin I < 0.03 < 0.03 (< 0.04) ng/mL Liver Function 11/28/17 Range/Units 04:23 Total Bilirubin 0.3 (0.3-1.0) mg/dL AST 13 (13-39) Units/L ALT 25 (7-52) Units/L Alkaline Phosphatase 103 (34-104) Units/L Albumin 3.3 L (3.5-5.7) g/dL - ABG Interpretation ABG results: PT/INR, D-dimer PT 11.5 Seconds (9.4-12.1) 11/27/17 20:36 - VTE Reasons for not Prescribing Prophylaxis: Not indicated-Anticoagulated or INR therapeutic Consult Discharge Plan - Plan Referrals: Fidel Guillen MD [Primary Care Provider] - 12/06/17 9:00 am
--- NOTE | 2017-11-28 14:07 | Oncology Inp Progress Note ---
Date of Encounter: 11/28/17 Time of Encounter: 12:00 (1) Internal jugular (IJ) vein thromboembolism, acute Current Visit: Yes Status: Acute Assessment and plan: Patient with a MediPort in the right chest, with right neck extensive thrombosis of the internal jugular vein to brachiocephalic vein surrounded by fat stranding congestion, status post chemotherapy with the first cycle of Adriamycin Cytoxan, about 2 weeks ago. She is being anticoagulated. CT chest angiogram is negative for pulmonary embolism. She is having a procedure with cardiology, EKG/echocardiogram. Continue IV heparin today plan possible DC home on oral anticoagulation with Xarelto 20 mg daily subsequently. Symptoms are continuing to resolve continue with the Mediport for now. Qualifiers: Laterality: right Qualified Code(s): I82.C11 - Acute embolism and thrombosis of right internal jugular vein Oncology: Subj Interval history: Patient was sent to ER for evaluation and hospitalization after Doppler of the right neck showed acute DVT. Patient is feeling well. She denies any pain. She reports that the swelling is improving. - Constitutional Vitals: Vital Signs Temp Pulse Resp BP Pulse Ox 11/28/17 10:57 98.2 F 87 15 124/71 96 11/28/17 06:47 98.4 F 86 14 124/70 96 11/28/17 04:05 98.5 F 85 14 121/71 97 11/28/17 00:20 99.3 F 11/27/17 23:41 99.0 F 91 14 126/64 96 11/27/17 22:35 20 117/62 Intake and Output 11/27/17 11/28/17 11/28/17 23:59 07:59 15:59 Intake Total 0 / 1000 156 / 156 1783 / 1783 Output Total 0 / 0 900 / 900 Balance 0 / 1000 156 / 156 883 / 883 Intake: IV Fluids 156 / 156 1243 / 1243 0.9 % Sodium Chloride 1,000 ML 950 / 950 @ 100 mls/hr IVC .Q10H [facility] Rx#: [id number] Heparin 25,000 UNIT/500 ML D5W 156 / 156 293 / 293 25,000 unit In 500 ml @ 14 UNIT /KG/HR 20.321 mls/hr IVC .Q24H [facility] Rx#:[id number] Oral 0 / 0 0 / 0 540 / 540 Output: Urine 0 / 0 900 / 900 Other: Meal Breakfast Percent of Meal Consumed 75% Weight 73.1 kg 73.1 kg Blood Glucose* 130 Patient Weight 11/28/17 23:59 Weight 73.1 kg General appearance: no acute distress - Head Head exam: Present: atraumatic, normal inspection - Eye Eye exam: Present: sclera anicteric - ENT ENT exam: Present: mucous membranes moist - Neck Additional comments: Filomena nk fullness - Respiratory Respiratory exam: Present: CTAB - Cardiovascular Cardiovascular exam: Present: +S1, +S2 - Extremities Exam Extremities exam: Present: normal inspection - Neurological Exam Neurological exam: Present: alert, CN II-XII intact, oriented X3, no focal deficits Oncology: Obj Data - Labs CBC & Chem 7: 11/28/17 04:23 11/28/17 04:23 Labs: Laboratory Results - last 24 hr 11/27/17 11/27/17 11/28/17 23:24 23:24 04:23 WBC RBC Hgb Hct MCV MCH MCHC RDW Plt Count MPV Immature Gran % Seg Neutrophils % Lymphocytes % Monocytes % Eosinophils % Basophils % Neutrophils # Lymphocytes # Monocytes # Eosinophils # Basophils # Reactive Lymphocytes Toxic Granulation Platelet Estimate Immature Plt Fraction Heparin Anti-Xa, Unfract 0.27 L Sodium Potassium Chloride Carbon Dioxide BUN Creatinine Est GFR ( Amer) Est GFR (Non-Af Amer) BUN/Creatinine Ratio Glucose POC Glucose Est Mean Plasma Glucose 166 Hemoglobin A1c 7.4 H Calculated Osmolality Calcium Magnesium Total Bilirubin AST ALT Alkaline Phosphatase Troponin I < 0.03 Serum Total Protein Albumin Globulin Albumin/Globulin Ratio Triglycerides Cholesterol LDL Cholesterol, Calc VLDL Cholesterol, Calc HDL Cholesterol Cholesterol/HDL Ratio 11/28/17 11/28/17 11/28/17 04:23 04:23 04:23 WBC 4.5 RBC 3.67 L Hgb 11.2 L Hct 33.3 L MCV 90.7 MCH 30.5 MCHC 33.6 RDW 13.0 Plt Count 106 L MPV 10.3 Immature Gran % 10.9 H Seg Neutrophils % 42.3 Lymphocytes % 32.3 Monocytes % 11.6 Eosinophils % 1.6 Basophils % 1.3 Neutrophils # 1.9 Lymphocytes # 1.5 Monocytes # 0.5 Eosinophils # 0.1 Basophils # 0.1 Reactive Lymphocytes Present A Toxic Granulation Present A Platelet Estimate Decreased L Immature Plt Fraction 3.2 Heparin Anti-Xa, Unfract Sodium 137 Potassium 3.9 Chloride 109 H Carbon Dioxide 25 BUN 14 Creatinine 0.66 Est GFR ( Amer) > 60 Est GFR (Non-Af Amer) > 60 BUN/Creatinine Ratio 21 Glucose 135 H POC Glucose Est Mean Plasma Glucose Hemoglobin A1c Calculated Osmolality 287 Calcium 8.5 L Magnesium 2.0 Total Bilirubin 0.3 AST 13 ALT 25 Alkaline Phosphatase 103 Troponin I < 0.03 Serum Total Protein 5.6 L Albumin 3.3 L Globulin 2.3 L Albumin/Globulin Ratio 1.4 Triglycerides 146 Cholesterol 122 LDL Cholesterol, Calc 62 VLDL Cholesterol, Calc 29 HDL Cholesterol 31 L Cholesterol/HDL Ratio 3.9 11/28/17 11/28/17 11/28/17 08:05 11:01 12:03 WBC RBC Hgb Hct MCV MCH MCHC RDW Plt Count MPV Immature Gran % Seg Neutrophils % Lymphocytes % Monocytes % Eosinophils % Basophils % Neutrophils # Lymphocytes # Monocytes # Eosinophils # Basophils # Reactive Lymphocytes Toxic Granulation Platelet Estimate Immature Plt Fraction Heparin Anti-Xa, Unfract 0.43 Sodium Potassium Chloride Carbon Dioxide BUN Creatinine Est GFR ( Amer) Est GFR (Non-Af Amer) BUN/Creatinine Ratio Glucose POC Glucose 143 H 130 H Est Mean Plasma Glucose Hemoglobin A1c Calculated Osmolality Calcium Magnesium Total Bilirubin AST ALT Alkaline Phosphatase Troponin I Serum Total Protein Albumin Globulin Albumin/Globulin Ratio Triglycerides Cholesterol LDL Cholesterol, Calc VLDL Cholesterol, Calc HDL Cholesterol Cholesterol/HDL Ratio - ABG Interpretation ABG results: PT/INR, D-dimer PT 11.5 Seconds (9.4-12.1) 11/27/17 20:36 Consult Discharge Plan - Plan Referrals: Fidel Guillen MD [Primary Care Provider] - 12/06/17 9:00 am Prescriptions: Rivaroxaban [Xarelto] 15 mg PO BID 21 Days #42 tablet
--- NOTE | 2017-11-28 15:38 | IR Progress Note ---
Patient reports: other Narrative: Pt with increased neck swelling Vital Signs: Vital Signs/O2 Sat, Most Current Temp Pulse Resp BP Pulse Ox 99.0 F 91 16 132/74 97 11/28/17 15:00 11/28/17 15:00 11/28/17 15:00 11/28/17 15:00 11/28/17 15:00 Recent Labs: Lab Results 11/28/17 11/28/17 04:23 04:23 WBC 4.5 RBC 3.67 L Hgb 11.2 L Hct 33.3 L MCV 90.7 MCH 30.5 MCHC 33.6 RDW 13.0 Plt Count 106 L MPV 10.3 Neutrophils # 1.9 Lymphocytes # 1.5 Monocytes # 0.5 Eosinophils # 0.1 Basophils # 0.1 Sodium 137 Potassium 3.9 Chloride 109 H Carbon Dioxide 25 BUN 14 Creatinine 0.66 Est GFR ( Amer) > 60 Est GFR (Non-Af Amer) > 60 BUN/Creatinine Ratio 21 Glucose 135 H Calcium 8.5 L Magnesium 2.0 Assessment and Plan Pt is a 67yo female with h/o breast cancer, and recently placed RIJV approach chest port by [facility]. Pt reported neck swelling, and had CT scans done yesterday. These revealed thrombus within the RIJV beginning a little above where the port catheter enters the vein, and then antegrade into the proximal SVC. The right subclavian vein and left IJV are patent. The proximal IJV from the skull base to a little above the port cath is patent as well. There is partial occlusion of the right innominate vein 2/2 the thrombus. Agree with continued anticoagulation at this time. Would leave port in place. No plan for [facility] intervention at this time. I discussed this with patient and family this afternoon. Radu Vargas MD [facility] staff
[2017-11-28] MEDS: Heparin 25,000 UNIT/500 ML D5W 25,000 UNIT/500 ML BAG IVC SCH (18:04)
--- NOTE | 2017-11-28 19:37 | Electrocardiograph Report ---
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
--- NOTE | 2017-11-28 19:57 | Electrocardiograph Report ---
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
[2017-11-29 07:22] VITALS: BP 144/73
[2017-11-29] MEDS: Aspirin Enteric Coated 81 MG Tablet PO SCH (08:10)
[2017-11-29] MEDS: Insulin LISPRO 300 UNITS/3 ML VIAL SQ SCH (08:10)
[2017-11-29] MEDS: Venlafaxine XR (24 HR) 150 MG CAP.ER.24H PO SCH (08:10)
[2017-11-29] MEDS: Gabapentin 300 MG CAPSULE PO SCH (08:10)
--- NOTE | 2017-11-29 08:36 | Discharge Summary ---
Orders not resulted at time of discharge: Pending orders 11/29/17 17:00 Heparin anti-factor XA UFH [COAG] Timed Date of Encounter: 11/29/17 Time of Encounter: 08:35 - Discharge Diagnosis (1) Internal jugular (IJ) vein thromboembolism, acute Priority: Primary Status: Acute Qualifiers: Laterality: right Qualified Code(s): I82.C11 - Acute embolism and thrombosis of right internal jugular vein (2) Breast cancer Priority: Secondary Status: Chronic Qualifiers: Breast location: central portion of breast Estrogen receptor status: unspecified Patient sex: female Laterality: right Qualified Code(s): C50.111 - Malignant neoplasm of central portion of right female breast (3) Chest pain Priority: Secondary Status: Acute Qualifiers: Chest pain type: precordial pain Qualified Code(s): R07.2 - Precordial pain (4) DVT prophylaxis Priority: Secondary Status: Acute Hospital course: Ms. Kenny is a 67 year old female recently diagnosed with breast cancer who presented to [facility] with facials and neck swelling. Patient was diagnosed with acute right IJ thrombosis. The patient was started on IV heparin and transitioned to by mouth so well told which she will take twice a day for 21 days and then follow up with primary care physician to continue 20 mg daily. Patient will follow up with oncology as an outpatient. Discharge discussed with: patient, nurse Time spent discussing smoking cessation with patient: 3 to 10 minutes - Time Spent with Patient Total time spent providing and/or coordinating discharge services: Greater than 30 minutes - Discharge Medications Prescriptions: Rivaroxaban [Xarelto] 15 mg PO BID 21 Days #42 tablet Home Medications: Gabapentin [Neurontin] 300 mg PO BID 10/30/17 [History] GlipiZIDE XL (24 HR) [Glucotrol XL] 10 mg PO BID 10/30/17 [History] Levothyroxine [Synthroid] 100 mcg PO DAILY 10/30/17 [History] Metformin HCl 1,000 mg PO BID 10/30/17 [History] Venlafaxine XR (24 HR) [Effexor Xr] 150 mg PO BID 10/30/17 [History] Aspirin [Lo-Dose Aspirin EC] 81 mg PO DAILY 11/01/17 [History] Dexamethasone [Decadron] 4 mg PO BID PRN #36 tab 11/09/17 [Rx] Lidocaine/Prilocaine [Emla] 1 appl TP AD PRN #30 gm 11/09/17 [Rx] Ondansetron [Zofran] 8 mg PO Q8HR PRN #60 tablet 11/09/17 [Rx] Prochlorperazine Maleate [Compazine] 10 mg PO Q6HR #90 tablet 11/09/17 [Rx] Loratadine [Allergy Relief] 10 mg PO AD PRN #10 tablet 11/14/17 [Rx] Magic Mouthwash 5 ml PO Q4H PRN #240 ml 11/14/17 [Rx] Amoxicillin/Clavulanate [Augmentin] 500 mg PO BIDWM #10 tablet 11/26/17 [Rx] Docusate Sodium [Colace] 100 mg PO BID #60 capsule 11/26/17 [Rx] Polyethylene Glycol 3350 [MiraLAX] 17 gm PO DAILY PRN #1 powd.pack 11/26/17 [Rx] Lisinopril [Zestril] 10 mg PO DAILY 11/27/17 [History] Rivaroxaban [Xarelto] 15 mg PO BID 21 Days #42 tablet 11/28/17 [Rx] Rivaroxaban [Xarelto] 15 mg PO BID tablet 11/29/17 [Rx] Allergies/Adverse Reactions: 3 Allergy/AdvReac Type Severity Reaction Status Date / Time fosaprepitant Allergy Severe Difficulty Verified 11/26/17 09:03 [From Emend (fosaprepitant)] Breathing moxifloxacin [From Avelox] Allergy Swelling Verified 11/26/17 09:03 of Lip/Tongue/Throat Date of admission: 11/27/17 22:17 Primary care physician: Fidel Guillen MD - Constitutional Vitals: Temp Pulse Resp BP Pulse Ox 98.3 F 103 15 144/73 93 11/29/17 06:45 11/29/17 06:45 11/29/17 06:45 11/29/17 06:45 11/29/17 06:45 General appearance: Present: cooperative, A&O X 3, pleasant, no acute distress, answers questions appropriately - Patient Status Disposition: Home, Self-Care Functional capacity at discharge: independent ambulation Overall status at discharge: patient is progressing back to baseline - Discharge Instructions Follow Up With: Fidel Guillen MD [Primary Care Provider] - 12/06/17 9:00 am - Diet and Activity Activity: as per physical therapy Diet: advance to your usual diet - VTE Reasons for not Prescribing Prophylaxis: Not indicated-Anticoagulated or INR therapeutic
[2017-11-29] MEDS ORDERED: *HR* Rivaroxaban 15 MG TABLET PO SCH (09:00)
[2017-12-10] MEDS ORDERED: Loratadine 10 MG TABLET PO PRN (09:00)
== END 2017-11-29 12:12 | disposition home or self-care (01) ==
LOC: EMEROO 15:11 → 3ANU 15:11 → SUATTDRO 22:17 → 3ANU 22:41
PROVIDERS: ADMIT Family Medicine; ATTEND Internal Medicine